=== PATIENT | female | born 1955 | race Caucasian/White ===

== ENCOUNTER 2016-11-11 16:08 | Emergency (ER) | payer OTHER ==
[~2016-11-11] VITALS: Ht 166.4 cm; Wt 76.2 kg
[~2016-11-11 16:08] MED LIST: AVONEX 3030 MCG/0.5 IM; PERCOCET 325 MG1 TA2 PO
[2016-11-11 16:52] LABS: ABSOLUTE BASOPHIL COUNT 0 /CUMM (0.0-0.2); ABSOLUTE EOSINOPHIL COUNT 0.1 /CUMM (0.0-0.7); ABSOLUTE GRANULOCYTE CT 3.7 /CUMM (1.4-6.5); ABSOLUTE LYMPH COUNT 2.2 /CUMM (1.2-3.4); ABSOLUTE MONOCYTE COUNT 0.5 /CUMM (0.10-0.60); BASOPHIL % 0.4 % (0.0-2.0); EOSINOPHIL % 1.3 % (0-5); GRANULOCYTE % 57.2 % (42.2-75.2); HEMATOCRIT 40.2 % (37-47); MEAN CORPUSCULAR HGB 30.6 PG (27.0-31.0); MEAN CORPUSCULAR HGB CONC 33.8 G/DL (33.0-37.0); MEAN CORPUSCULAR VOLUME 90.4 FL (81.0-99.0); MEAN PLATELET VOLUME 7.7 FL (7.4-10.4); PLATELET COUNT 239 /CUMM (130-400); RBC DISTRIBUTION WIDTH 12.8 % (11.5-14.5); RED BLOOD CELL CT 4.45 /CUMM (4.20-5.40); WHITE BLOOD CELL COUNT 6.5 /CUMM (4.8-10.8)
--- NOTE | 2016-11-11 16:53 | ED GENERAL ADULT ---
History of Present Illness General Chief Complaint: Dizziness Stated Complaint: DIZZY/LIGHT HEADED/ELEVATED BP Source: patient Exam Limitations: no limitations Allergies Coded Allergies: fluoxetine (Intermediate, PT STATES ONLY GENERIC GIVES HER RASH 11/11/16) Reconcile Medications Aspirin/Caffeine (Kory Back & Body Caplet) 500 MG-32.5 MG TABLET 2 TAB PO ONCE HEADACHE (Reported) Calcium Carb/Vit D3/Minerals (Calcium +D & Minerals Chew Tab) 600 MG-400 TAB.CHEW 2 TAB PO DAILY SUPPLEMENT (Reported) Interferon Beta-1a (Avonex) (Unknown Strength) SYRINGE (Unknown Dose) INJ QSUN MS (Reported) Meclizine HCl 25 MG TABLET 1 TAB PO Q8 PRN dizziness [place]-3 Acid Ethyl Esters (Lovaza) 1 GRAM CAPSULE 2 CAP PO BID CHOLESTEROL ( Reported) Red Yeast Rice (Unknown Strength) CAPSULE (Unknown Dose) PO DAILY SUPPLEMENT (Reported) Triage Note: PT IS EMPLOYEE OF [employer] AND STATES THAT AROUND 1515 SHE STARTED TO FEEL DIZZY, FELT LIKE HER LEGS WERE GOUING TO GIVE OUT, BP 168/111 AT TRIAGE, PT COMPLAINS OF HEADACHE IN BILATERAL TEMPEROL AREA. DENIES CP, PT WAS MEDICATED WITH ASPRIN/TYLENOL AT WORK Triage Nurses Notes Reviewed? yes Onset: 1530 TODAY HPI: Patient is a 61-year-old female presents complaining of dizziness, head pressure , intermittent tingling in her hands and left lower extremity. Patient reports symptoms onset at approximately 3:30 PM today. Patient had a stressful day at work, was at rest when symptoms began. Patient measured her blood pressure and found it to be 168/101. Dizziness is a spinning sensation that worsens with head movements. Significantly worsens with lying flat. Patient has a history of Mnire's disease reports that this feels different. Patient was previously on antihypertensive medication, had a lap band procedure several years ago and has been off blood pressure medication. Symptoms are currently mild at rest, at times her severe. Intermittent paresthesias to bilateral hands and left lower extremity. Denies recent trauma, change in vision, chest pain, palpitations, change in speech (ISABEL KUMAR) Vital Signs & Intake/Output Vital Signs & Intake/Output Vital Signs Date Time Temp Pulse Resp B/P Pulse O2 O2 Flow FiO2 Ox Delivery Rate 11/11 1724 156/84 11/11 1609 97.4 58 18 168/111 99 Room Air Past History Travel History Traveled to [place] past 21 day No Medical History Any Pertinent Medical History? 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 No (ISABEL KUMAR) Review of Systems Review of Systems Constitutional: Denies: chills, fever. EENTM: Denies: blurred vision, visual changes, ear pain, nasal congestion. Respiratory: Denies: cough, short of breath. Cardiovascular: Denies: chest pain, palpitations, syncope. GI: Reports: nausea. Denies: abdominal pain. Genitourinary: Reports: no symptoms. Musculoskeletal: Reports: no symptoms. Skin: Reports: no symptoms. Neurological/Psychological: Reports: see HPI. Hematologic/Endocrine: Reports: no symptoms. Immunologic/Allergic: Reports: no symptoms. (ISABEL KUMAR) Physical Exam Physical Exam General Appearance: well developed/nourished, alert, awake Head: atraumatic, normal appearance Eyes: Bilateral: other (mild horizontal nystagmus). Ears, Nose, Throat: normal pharynx, normal ENT inspection, hearing grossly normal, mild clear fluid posterior to bilateral TM's Neck: normal inspection, supple, full range of motion, no appreciable carotid bruit Respiratory: normal breath sounds, chest non-tender, no respiratory distress, lungs clear Cardiovascular: regular rate/rhythm (no appreciable murmur) Gastrointestinal: normal bowel sounds, soft, non-tender Back: normal inspection, normal range of motion Extremities: normal inspection, normal capillary refill, normal range of motion, no edema Neurologic/Psych: no motor/sensory deficits, awake, alert, oriented x 3, normal gait, normal mood/affect Skin: intact, normal color, warm/dry Lymphatic: no anterior cervical rafi Core Measures ACS in differential dx? Yes ASA ordered for poss ACS? No-ACS ruled out CVA/TIA Diagnosis: No Severe Sepsis Present: No Septic Shock Present: No (ISABEL KUMAR) Progress Differential Diagnoses I considered the following diagnoses in my evaluation of the patient: Peripheral vertigo versus central vertigo, vertebrobasilar insufficiency, cerebellar infarct, stroke, ICH Diagnostic Imaging: Viewed by Me: CT Scan. Discussed w/RAD: CT Scan. Radiology Impression: PATIENT: SERVANDO CHOI PRESENT AGE: 61 PATIENT ACCOUNT NO: [id number] : 56 LOCATION: [facility] ORDERING PHYSICIAN: ISABEL ORTEZ SERVICE DATE: 11/11/16 EXAM TYPE: CAT - CT HEAD WO IV CONTRAST EXAMINATION: CT HEAD WITHOUT CONTRAST CLINICAL INFORMATION: Head pressure, elevated blood pressure, dizziness COMPARISON: None. TECHNIQUE: Contiguous axial imaging was performed from the skull base to vertex without intravenous administration of contrast. DLP: 529.16 mGy-cm. FINDINGS: There is no evidence of acute intracranial hemorrhage or territorial infarction. No abnormal mass effect or midline shift is seen. Tapia to white matter differentiation is well preserved. No extra-axial fluid collections are identified. The ventricles are normal in size. There is no abnormal attenuation within the brain parenchyma. No acute fracture is seen. Scalp soft tissue calcification is noted in the high left frontal region. The mastoid air cells and visualized portions of the paranasal sinuses are well aerated. IMPRESSION: No acute intracranial pathology. DICTATED BY: GURJIT AGUILERA MD DATE/TIME DICTATED:11/11/161720 FILLING HAULER:BATOOL DATE/TIME TRANSCRIBED:11/11/161720 CONFIDENTIAL, DO NOT COPY WITHOUT APPROPRIATE AUTHORIZATION. <Electronically signed in Other Vendor System> SIGNED BY: GURJIT AGUILERA MD 11/11/16 1730 Initial ED EKG: SINUS BRADYCARDIA RATE IN THE LOW 50S. nORMAL AXIS, NORMAL INTERVALS, NO ACUTE st/t-WAVE CHANGES Rhythm Strip: sinus bradycardia (rate in the 50's) (ISABEL KUMAR) Plan of Care: Orders Procedure Date/time Status Telemetry/Digital Media Director 11/11 1704 Active TROPONIN LEVEL 11/11 161 Complete COMPREHENSIVE METABOLIC PANEL 11/11 161 Complete CBC WITHOUT DIFFERENTIAL 11/11 1616 Complete EKG 11/11 161 Active Laboratory Tests 11/11/16 1620: Anion Gap 11, Estimated GFR > 60, BUN/Creatinine Ratio 30.0 H, Glucose 95, Calcium 9.8, Total Bilirubin 0.5, AST 24, ALT 22, Alkaline Phosphatase 69, Troponin I < 0.01, Total Protein 7.4, Albumin 4.5, Globulin 2.9, Albumin/ Globulin Ratio 1.6, CBC w Diff NO MAN DIFF REQ, RBC 4.45, MCV 90.4, MCH 30.6, RDW 12.8, MPV 7.7, Gran % 57.2, Lymphocytes % 33.9, Monocytes % 7.2, Eosinophils % 1.3, Basophils % 0.4, Absolute Granulocytes 3.7, Absolute Lymphocytes 2.2, Absolute Monocytes 0.5, Absolute Eosinophils 0.1, Absolute Basophils 0, PUBS MCHC 33.8 1714: Discussed with Dr. Mtz 1744: Evaluated by Dr. Mtz, performed aure maneuvers which caused the patient to become significantly more symptomatic, likely peripheral vertigo. 1919: Patient reports feeling significantly improved. Ambulated well with normal gait. Appears consistent with peripheral vertigo, appears stable for discharge. (ISABEL KUMAR) Departure Departure Time of Disposition: 1920 Disposition: HOME OR SELF CARE Condition: Stable Clinical Impression Primary Impression: Vertigo Referrals: ROBIN ARITA,PRISCILA Hernandez (PCP/Family) Additional Instructions: Follow-up with your primary doctor this week for recheck and further evaluation. Return to the emergency department if numbness, weakness, difficulty ambulating , or worsening of symptoms. Do not drive until you're dizziness has resolved. Departure Forms: Customer Survey General Discharge Information Prescriptions: Current Visit Scripts Meclizine HCl 1 TAB PO Q8 PRN dizziness #12 TAB (ISABEL KUMAR) PA/TELEPHONE LINEWORKER Co-Sign Statement Statement: ED Attending supervision documentation- [x] I saw and evaluated the patient. I have also reviewed all the pertinent lab results and diagnostic results. I agree with the findings and the plan of care as documented in the PA's/TELEPHONE LINEWORKER's documentation. [] I have reviewed the ED Record and agree with the PA's/TELEPHONE LINEWORKER's documentation. [] Additions or exceptions (if any) to the PAs/TELEPHONE LINEWORKER's note and plan are summarized below: [] (SUMA ARITA,NETTIE Kennedy) Critical Care Note Critical Care Note Critical Care Time: non-applicable (ISABEL KUMAR)
--- NOTE | 2016-11-11 17:30 | CT SCAN REPORT ---
EXAMINATION: CT HEAD WITHOUT CONTRAST CLINICAL INFORMATION: Head pressure, elevated blood pressure, dizziness COMPARISON: None. TECHNIQUE: Contiguous axial imaging was performed from the skull base to vertex without intravenous administration of contrast. DLP: 529.16 mGy-cm. FINDINGS: There is no evidence of acute intracranial hemorrhage or territorial infarction. No abnormal mass effect or midline shift is seen. Tapia to white matter differentiation is well preserved. No extra-axial fluid collections are identified. The ventricles are normal in size. There is no abnormal attenuation within the brain parenchyma. No acute fracture is seen. Scalp soft tissue calcification is noted in the high left frontal region. The mastoid air cells and visualized portions of the paranasal sinuses are well aerated. IMPRESSION: No acute intracranial pathology.
[2016-11-11] MEDS ORDERED: AVONEX30 MCG/0.5 INJ (17:31)
[2016-11-11] MEDS ORDERED: RED YEAST RICE600 M1 PO (17:32)
[2016-11-11] MEDS ORDERED: LOVAZA1 G1 PO (17:32)
[2016-11-11] MEDS ORDERED: BAYER BACK & B1 EACH PO (17:33)
[2016-11-11] MEDS ORDERED: CALCIUM +D & M1 EACH PO (17:33)
[2016-11-11] MEDS ORDERED: MECLIZINE HCL25 MG PO (19:22)
[2016-11-11 19:42] VITALS: BP 154/87
== END 2016-11-11 19:43 ==
LOC: ERH 16:08
PROVIDERS: Emergency Medicine
DX: R42 Dizziness and giddiness (principal)
CPT/HCPCS: 93005; 93010; J3101

== ENCOUNTER 2018-01-09 07:34 | Emergency (ER) | payer OTHER ==
[~2018-01-09] VITALS: Ht 165.1 cm; Wt 70.3 kg
[~2018-01-09 07:34] MED LIST changes: +AVONEX30 MCG/0.1; +BACTRIM DS TAB1 EACH PO; +BAYER BACK & B1 EACH PO; +CALCIUM +D & M1 EACH PO; +KEFLEX500 M1 PO; +LISINOPRIL10 M1 PO; +LOVAZA1 G1 PO; +MECLIZINE HCL25 MG PO; +RED YEAST RICE600 M1 PO; +TYLENOL WITH C1 EACH PO
[2018-01-09 07:40] VITALS: BP 133/78
--- NOTE | 2018-01-09 07:47 | ED UPPER/LOWER EXTREMITY COMPL ---
History of Present Illness General Chief Complaint: Suture Removal/Wound Recheck Stated Complaint: WOUND CHECK Source: patient Exam Limitations: no limitations Vital Signs & Intake/Output Vital Signs & Intake/Output Vital Signs Date Time Temp Pulse Resp B/P B/P Pulse O2 O2 Flow FiO2 Mean Ox Delivery Rate 01/09 0740 96.0 89 20 133/78 99 Room Air Allergies Coded Allergies: fluoxetine (Intermediate, PT STATES ONLY GENERIC GIVES HER RASH 01/07/18) Reconcile Medications Aspirin/Caffeine (Kory Back & Body Caplet) 500 MG-32.5 MG TABLET 2 TAB PO ONCE HEADACHE (Reported) Calcium Carb/Vit D3/Minerals (Calcium +D & Minerals Chew Tab) 600 MG-400 TAB.CHEW 2 TAB PO DAILY SUPPLEMENT (Reported) Cephalexin (Keflex) 500 MG CAPSULE 1 CAP PO BID PARONYCHIA Interferon Beta-1a (Avonex) 30 MCG/0.5 ML SYRINGEKIT 1 INJ QW MS (Reported) Lisinopril 10 MG TABLET 1 TAB PO DAILY HEART (Reported) Meclizine HCl 25 MG TABLET 1 TAB PO TIDPRN PRN dizziness [place]-3 Acid Ethyl Esters (Lovaza) 1 GRAM CAPSULE 2 CAP PO BID CHOLESTEROL ( Reported) Red Yeast Rice (Unknown Strength) CAPSULE (Unknown Dose) PO DAILY SUPPLEMENT (Reported) Sulfamethoxazole/Trimethoprim (Bactrim Ds Tablet) 800 MG-160 MG TABLET 1 TAB PO BID paronychia Tylenol With Codeine (Tylenol With Codeine #3 Tablet) 300 MG-30 MG TABLET 1 TAB PO BIDP PRN PAIN Triage Note: PT TO ED FOR WOUND CHECK TO LEFT INDEX FINGER. PT WAS SEEN IN ED 2 DAYS AGO FOR Triage Nurses Notes Reviewed? yes Onset: Abrupt Duration: day(s): Timing: recent history Severity: mild Pain/Injury Location: Left: 2nd finger. Method of Injury: "I had paronychia and had it lanched 2 days ago." Modifying Factors: Improves With: rest, other (better w/abx). Associated Symptoms: symptoms are improving HPI: 62 yo woman presents with a wound check on left 2nd digit. She has been taking bactrim and keflex and notes that the swelling, redness, and discomfort is improving. She notes no more drainage after it was lanced. She is otherwise well. Past History Travel History Traveled to [place] past 21 day No Medical History Any Pertinent Medical History? 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 No Review of Systems Review of Systems Constitutional: Reports: no symptoms. EENTM: Reports: no symptoms. Respiratory: Reports: no symptoms. Cardiovascular: Reports: no symptoms. Gastrointestinal/Abdominal: Reports: no symptoms. Genitourinary: Reports: no symptoms. Musculoskeletal: Reports: no symptoms. Skin: Reports: no symptoms. Neurological/Psychological: Reports: no symptoms. Hematologic/Endocrine: Reports: no symptoms. Immunological: Reports: no symptoms. All Other Systems: Reviewed and Negative Physical Exam Physical Exam General Appearance: well developed/nourished, mild distress Head: atraumatic Eyes: Bilateral: normal appearance. Ears, Nose, Throat: normal ENT inspection Neck: normal inspection, supple Back: normal inspection Hand Left: 2nd digit with well healing paronychia, non tender to palpation. no drainage. Skin: intact, normal color, warm/dry Lymphatic: no anterior cervical rafi Progress Differential Diagnosis: cellulitis vs abscess. Plan of Care: here for wound check.... culture shows staph aureus, susceptibilities pending. pt on bactrim,keflex and is improving. discussed with patient. if sx worsen, close follow up advised. Departure Departure Disposition: HOME OR SELF CARE Condition: Stable Clinical Impression Primary Impression: Paronychia of left index finger Referrals: Bert ARITA,Rory Hernandez (PCP/Family) Departure Forms: Customer Survey General Discharge Information
== END 2018-01-09 08:00 ==
LOC: ERH 07:34
DX: Z48.00 Encounter for change or removal of nonsurgical wound dressing (principal)